=== PATIENT | male | born 1970 | race African-American/Black ===

== ENCOUNTER 2016-08-22 13:24 | Inpatient (IN) ==
[2016-08-22] MEDS ORDERED: ASPIRIN 325 MG TABLET PO STA (13:56)
[2016-08-22] MEDS ORDERED: ENOXAPARIN 100 MG/ML SYRINGE SUBCUT STA (13:56)
[2016-08-22] MEDS ORDERED: NITROGLYCERIN SL 0.4 MG TABLET SL PRN (13:56)
[2016-08-22] MEDS ORDERED: ASPIRIN 325 MG TABLET ONE (13:57)
[2016-08-22] MEDS ORDERED: ENOXAPARIN 80 MG/0.8 ML SYRINGE SUBCUT ONE (13:57)
--- NOTE | 2016-08-22 13:58 | EKG Report ---
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
[2016-08-22 14:06] LABS: Basophils % 0.6 % (0.0-0.8); Eosinophils # 0.2 10*3/uL (0.0-0.87); Eosinophils % 3.1 % (0.00-10.9); Hemoglobin 15.5 GM/DL (14.0-18.0); Immature Granulocytes % 0.2 %; Immature Granulocytes Absolute 0.01 #; Lymphocytes # 2.4 10*3/uL (1.4-4.0); Lymphocytes % 37.9 % (21.2-54.2); Mean Corpuscular HGB Conc 33.7 GM/DL (32-36); Mean Corpuscular Hemoglobin 29 PG (27-34); Mean Corpuscular Volume 86.3 FL (87-102); Monocytes # 0.4 10*3/uL (0.11-0.8); Monocytes % 6.4 % (1.7-12.7); Neutrophils # 3.2 10*3/uL (1.4-7.4); Neutrophils % 51.8 % (38.7-73.9); Platelet Count 243 T/CUMM (130-400); Red Blood Count 5.33 MC/CUMM (3.8-5.5); White Blood Count 6.2 T/CUMM (4-12)
[2016-08-22] MEDS ORDERED: HYDROmorphone 2 MG/1 ML VIAL ONE (14:06)
[2016-08-22] MEDS ORDERED: LIDOCAINE 1% 20 ML VIAL ONE (14:06)
[2016-08-22] MEDS ORDERED: MIDAZOLAM 2 MG/2 ML VIAL ONE (14:07)
--- NOTE | 2016-08-22 14:28 | XRay Report ---
Portable chest Date: 08/22/2016 Clinical history: Chest pain Comparison: 06/01/2009 Technique: Portable AP sitting chest Findings: The heart is normal in size. Calcified granulomata with chronic scarring. Minimal atelectasis at the lung bases. Unremarkable mediastinum and osseous structures. Impression: Scarring with minimal atelectasis at the lung bases. PROCEDURE INTERPRETED AT [facility] DEPARTMENT OF RADIOLOGY Final Report Signed by: Dr. Geetha Melton
[2016-08-22 14:34] LABS: Albumin 4.5 G/DL (3.4-5.0); Bilirubin,Total 0.4 MG/DL (0.2-1.0); Calcium 9.9 MG/DL (8.5-10.1); Magnesium 2.1 MG/DL (1.8-2.4); Osmolality,Calculated 284.1 MOS/KG (273-304); Potassium 3.9 MMOL/L (3.5-5.1); Total Protein 8.3 G/DL (6.4-8.3)
[2016-08-22] MEDS ORDERED: ONDANSETRON 4 MG/2 ML VIAL IV PRN (14:50)
[2016-08-22] MEDS ORDERED: ZALEPLON 5 MG CAPSULE PO PRN (14:50)
[2016-08-22] MEDS ORDERED: CLOPIDOGREL 300 MG TABLET PO ONE (14:50)
--- NOTE | 2016-08-22 15:00 | Cardiac Catheterization ---
Date of Procedure:: 08/22/16 Post-op diagnosis: same Procedure: Procedures performed: 1. Left heart catheterization 2. Coronary angiography 3. Left ventriculography Brief summary: Mr. Lewis 46-year-old with previous inferior AL in 2008 presented with one-week chest pain shortness of breath with EKG changes concerning for injury anteriorly. He reportedly had a troponin was positive outside facility. Description of procedure: After obtaining informed consent, the right groin was prepped and draped in the usual sterile fashion. Next a short 6 Palestinian sheath was placed in the right femoral artery using a modified Seldinger technique, after the patient received IV sedation and local anesthetic. Next a JL4 catheter was advanced over a guidewire under fluoroscopic guidance, and was engaged to the left coronary artery after which angiography was performed in multiple views. This was then removed over a wire, and a JR4 catheter was advanced in similar fashion was engaged the right coronary artery after which angiography was performed in multiple views. Next a bent pigtail catheter was advanced into the left ventricle, where hemodynamic measurements were obtained, left ventriculography was performed. I was able to visualize the sheath on a "lopez down" shot which showed the sheath was inserted in the right common femoral artery in a vessel suitable for closure. Hemostasis was obtained with Angio-Seal device with no residual bleeding. 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 Coronary angiography: Left main coronary artery is a bit larger than average caliber. Left anterior to see artery is larger than average caliber but is ectatic in the proximal and midportion. There is 30-40% mid LAD stenosis. The LAD wraps well around the apex and is occluded very distally at the apex with evidence of thrombus. The right coronary artery is occluded very proximally with a long stented segment which is occluded. The conus provides collaterals to a couple thin marginal branches. The right-sided PDA seen filling by left-to -right collaterals. Left ventriculography: The left ventricle appears normal in size with normal overall LV systolic function. The estimated ejection fraction 55% with small discrete area of severe apical hypokinesis. Impression: 1. Normal overall LV systolic function with ejection fraction estimated 55% with small apical area of severe hypokinesis 2. Right dominant system 3. Several small saccular aneurysms are noted including in the proximal diagonal, proximal OM1 with ectatic proximal and mid LAD 4. Two-vessel coronary artery disease as described above including but not limited to: A. Very distal LAD occlusion at the apex with evidence of thrombus B. Very proximal RCA occlusion with long stented segment and filling of PDA by [id number] collaterals. Recommendations and discussion: Given these findings it is clear Mr. Middleton be treated medically. His thrombus is much too distal for intervention. I will start him on aspirin and Plavix, we 'll give him low dose beta lion and continuous statin therapy. His normal LV function is encouraging scarred cardiovascular prognosis. We will need to make sure that he does not smoke and takes his medicine regularly. He'll need to avoid squatting straining or lifting for the next one week's time. We will plan to watch overnight. 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
--- NOTE | 2016-08-22 15:41 | EKG Report ---
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
[2016-08-22] MEDS: METOPROLOL TARTRATE 50 MG TABLET PO SCH ×2 (17:35→21:15)
--- NOTE | 2016-08-22 17:46 | Cardiology Progress Note ---
Assessment and Plan (1) NSTEMI (non-ST elevated myocardial infarction) Status: Acute Assessment and plan: 1. 46-year-old black male smoker with history of apparent inferior PA 2008 with AngioJet and multiple stents placed in his right coronary artery with suboptimal result (BETTY 1 flow), now with 5-7 days of chest pain and shortness of breath and EKG with early repolarization and some suggestion of anterior injury taken directly to the offset label rewinder for definition of his coronary anatomy 2. At catheterization he had occluded ostial right coronary artery which appears to be chronic since 2008 with filling of his PDA by [id number] collaterals, as well as very distal LAD thrombus at the apex not amenable to intervention; will give medical therapy with statin, baby aspirin, and Plavix, as well as low-dose beta lion. 3. Stopping smoking will be very important as he has had 2 myocardial infarctions in the last 8 years 4. Overall normal LV systolic function with ejection fraction estimated 55% with a discrete area of apical hypokinesis 5. We'll observe overnight; his chest pain resolved after the catheterization without intervention. Current Visit: Yes (2) HTN (hypertension) Status: Acute Current Visit: Yes (3) Dyslipidemia Status: Acute Current Visit: Yes (4) Smoking Status: Acute Current Visit: Yes Cardiology - PN: Subj Interval history: Mr. Nguyen reports having chest pain for the last week. He is not clear on how long it lasts at a time but says that is been constant today and radiates to his left arm. He also reports some shortness of breath. He denies any history of blood clots or bleeding problems. Denies any history of TIA or stroke. He reports that he smokes regularly. I met him on the offset label rewinder table, as he had a troponin measured outside it was positive, EKG changes suggestive though not diagnostic of anterior injury. Exam (Progress Note) - Constitutional Vitals: Period Temp Pulse Resp BP Sys/Meza Pulse Ox Last 24 Hr 97.3 F-97.8 F 65-76 16-24 102-129/67-88 99-100 Result/EKG - Labs CBC & BMP: 08/22/16 13:56 08/22/16 13:56 Labs: Laboratory Results - last 24 hr 08/22/16 08/22/16 08/22/16 13:56 13:56 13:56 WBC 6.2 RBC 5.33 Hgb 15.5 Hct 46.0 MCV 86.3 L MCH 29 MCHC 33.7 RDW 13.0 Plt Count 243 MPV 12.0 Neut % (Auto) 51.8 Lymph % (Auto) 37.9 [place] % (Auto) 6.4 Eos % (Auto) 3.1 Baso % (Auto) 0.6 Neut # (Auto) 3.2 Lymph # (Auto) 2.4 [place] # (Auto) 0.4 Eos # (Auto) 0.2 Baso # (Auto) 0.0 Immature Gran % 0.2 Nucleated RBC % 0.0 Immature Gran # 0.01 Nucleated RBCs # 0.00 Sodium 142 Potassium 3.9 Chloride 103 Carbon Dioxide 28 Anion Gap 14.9 BUN 22 H Creatinine 1.30 GFR Calculation 79 BUN/Creatinine Ratio 16.00 Glucose 80 Calculated Osmolality 284.1 Calcium 9.9 Magnesium 2.1 Total Bilirubin 0.40 AST 22 ALT 28 Alkaline Phosphatase 89 Troponin I B-Natriuretic Peptide 24 Total Protein 8.3 Albumin 4.5 Globulin 3.8 H Albumin/Globulin Ratio 1.1 08/22/16 13:56 WBC RBC Hgb Hct MCV MCH MCHC RDW Plt Count MPV Neut % (Auto) Lymph % (Auto) [place] % (Auto) Eos % (Auto) Baso % (Auto) Neut # (Auto) Lymph # (Auto) [place] # (Auto) Eos # (Auto) Baso # (Auto) Immature Gran % Nucleated RBC % Immature Gran # Nucleated RBCs # Sodium Potassium Chloride Carbon Dioxide Anion Gap BUN Creatinine GFR Calculation BUN/Creatinine Ratio Glucose Calculated Osmolality Calcium Magnesium Total Bilirubin AST ALT Alkaline Phosphatase Troponin I 3.820 H B-Natriuretic Peptide Total Protein Albumin Globulin Albumin/Globulin Ratio
[2016-08-22 19:10] LABS: Barbiturates Screen,Urine Negative (Negative); Benzodiazepines Screen,Urine Positive (Negative); Cannabinoid Screen,Urine Positive (Negative); Opiate Screen,Urine Positive (Negative); Phencyclidine Screen,Urine Negative (Negative)
[2016-08-23 05:42] LABS: Basophils % 0.2 % (0.0-0.8); Eosinophils # 0.5 10*3/uL (0.0-0.87); Eosinophils % 5.2 % (0.00-10.9); Hematocrit 42.9 VOL% (42.0-52.0); Hemoglobin 14.6 GM/DL (14.0-18.0); Immature Granulocytes % 0.3 %; Immature Granulocytes Absolute 0.03 #; Lymphocytes # 2.1 10*3/uL (1.4-4.0); Lymphocytes % 23.1 % (21.2-54.2); Mean Corpuscular Hemoglobin 29 PG (27-34); Mean Corpuscular Volume 84.4 FL (87-102); Mean Platelet Volume 12.2 FL (9.6-12.0); Monocytes # 0.7 10*3/uL (0.11-0.8); Monocytes % 7.6 % (1.7-12.7); Neutrophils # 5.9 10*3/uL (1.4-7.4); Neutrophils % 63.6 % (38.7-73.9); Platelet Count 228 T/CUMM (130-400); Red Blood Count 5.08 MC/CUMM (3.8-5.5); Red Cell Distribution Width 13.1 % (9.3-17.3); White Blood Count 9.2 T/CUMM (4-12)
[2016-08-23 06:19] LABS: Calcium 9.4 MG/DL (8.5-10.1); Osmolality,Calculated 286.1 MOS/KG (273-304); Potassium 4.3 MMOL/L (3.5-5.1)
--- NOTE | 2016-08-23 07:30 | EKG Report ---
Stationary ECG Study 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
[2016-08-23] MEDS ORDERED: CLOPIDOGREL 75 MG TABLET PO SCH (09:00)
[2016-08-23] MEDS ORDERED: ASPIRIN EC 81 MG TABLET PO SCH (09:00)
[2016-08-23] MEDS ORDERED: METOPROLOL SUCCINATE XL 50 MG TABLET PO SCH (09:00)
[2016-08-23] MEDS ORDERED: LISINOPRIL 10 MG TABLET PO SCH (09:00)
--- NOTE | 2016-08-23 09:15 | Discharge Summary ---
Hospital Course - Hospital Course Hospital Course: Mr. Lewis was admitted yesterday August 22 as an acute DE. His EKG really showed early repolarization but there was some suggestion of anterior injury and given his ongoing chest pain, and reported elevated troponin, I performed heart catheterization. His long stented right coronary was occluded home (from 2008 acute DE, likely long occluded) with very distal LAD thrombus at the apex. He reported this chest pain and shortness of breath was completely resolved at the end of the catheterization despite no intervention. His urine tox was positive for marijuana. He is positive for benzodiazepines and opiates, but he was given a lot of and Versed prior to catheterization. Today he is without symptoms and is anxious for discharge. His right groin site is without hematoma bleeding or bruit. He is on aspirin and Plavix and started low-dose beta lion and low-dose EDUARDO inhibitor. He is hemodynamically stable. At this time I believe he is received maximal hospital benefit [facility]. He will need to avoid squatting straining or lifting for the next 6 days. Diagnosis - Discharge Diagnosis (1) NSTEMI (non-ST elevated myocardial infarction) Status: Acute (2) HTN (hypertension) Status: Acute (3) Dyslipidemia Status: Acute (4) Smoking Status: Acute Specialty Discharge - Follow Up or Referrals Follow up with: Vladimir Bray MD [Physician] - 2 Weeks (with EKG CBC CMP FLP) Discharge Plan - Discharge Medications No Action Mag Hydrox/Al Hydrox/Simeth [Alum-Mag Hydroxide-Simeth Liq] 15 ml PO PCHS amLODIPine [Norvasc] 10 mg PO DAILY Simvastatin 10 mg PO BEDTIME hydroCHLOROthiazide [Hydrochlorothiazide] 25 mg PO QAM Mirtazapine 30 mg PO BEDTIME Naproxen [Naprosyn Tab] 500 mg PO BID Aspirin Chew Tab 81 mg PO DAILY - Follow Up or Referral - Forms/Instructions Exam - Constitutional Vitals: Period Temp Pulse Resp BP Sys/Meza Pulse Ox Last 24 Hr 96.4 F-97.8 F 61-76 16-24 102-168/61-93 96-100 General appearance: normal weight, no acute distress - Head Head exam: Present: normal inspection, normocephalic, atraumatic - Neck Neck exam: Present: normal inspection - Respiratory Respiratory exam: Present: clear to auscultation bilaterally - Cardiovascular Cardiovascular exam: Present: regular rate and rhythm. Absent: diastolic murmur , rubs, systolic murmur - GI/Abdominal GI/Abdominal exam: Present: soft. Absent: tenderness - Extremities Exam Extremities exam: Present: other (right groin is without bruit hematoma or bleeding at that). Absent: edema Discharge Results Labs on day of discharge: Labs from last 24 hours 08/23/16 08/23/16 08/22/16 04:19 04:19 19:34 WBC 9.2 D RBC 5.08 Hgb 14.6 Hct 42.9 MCV 84.4 L MCH 29 MCHC 34.0 RDW 13.1 Plt Count 228 MPV 12.2 H Neut % (Auto) 63.6 Lymph % (Auto) 23.1 [place] % (Auto) 7.6 Eos % (Auto) 5.2 Baso % (Auto) 0.2 Neut # (Auto) 5.9 Lymph # (Auto) 2.1 [place] # (Auto) 0.7 Eos # (Auto) 0.5 Baso # (Auto) 0.0 Immature Gran % 0.3 Nucleated RBC % 0.0 Immature Gran # 0.03 Nucleated RBCs # 0.00 Sodium 142 Potassium 4.3 Chloride 106 Carbon Dioxide 25 Anion Gap 15.3 H BUN 23 H Creatinine 1.20 GFR Calculation 87 BUN/Creatinine Ratio 19.00 Glucose 91 Calculated Osmolality 286.1 Calcium 9.4 Magnesium Total Bilirubin AST ALT Alkaline Phosphatase Troponin I 3.360 H B-Natriuretic Peptide Total Protein Albumin Globulin Albumin/Globulin Ratio Urine Opiates Screen Ur Barbiturates Screen Ur Phencyclidine Scrn U Amphetamine/Methamph U Benzodiazepines Scrn U Cocaine Metab Screen U Cannabinoids Screen 08/22/16 08/22/16 08/22/16 18:00 16:59 13:56 WBC RBC Hgb Hct MCV MCH MCHC RDW Plt Count MPV Neut % (Auto) Lymph % (Auto) [place] % (Auto) Eos % (Auto) Baso % (Auto) Neut # (Auto) Lymph # (Auto) [place] # (Auto) Eos # (Auto) Baso # (Auto) Immature Gran % Nucleated RBC % Immature Gran # Nucleated RBCs # Sodium Potassium Chloride Carbon Dioxide Anion Gap BUN Creatinine GFR Calculation BUN/Creatinine Ratio Glucose Calculated Osmolality Calcium Magnesium Total Bilirubin AST ALT Alkaline Phosphatase Troponin I 3.670 H 3.820 H B-Natriuretic Peptide Total Protein Albumin Globulin Albumin/Globulin Ratio Urine Opiates Screen Positive H Ur Barbiturates Screen Negative Ur Phencyclidine Scrn Negative U Amphetamine/Methamph Negative U Benzodiazepines Scrn Positive H U Cocaine Metab Screen Negative U Cannabinoids Screen Positive H 08/22/16 08/22/16 08/22/16 13:56 13:56 13:56 WBC 6.2 RBC 5.33 Hgb 15.5 Hct 46.0 MCV 86.3 L MCH 29 MCHC 33.7 RDW 13.0 Plt Count 243 MPV 12.0 Neut % (Auto) 51.8 Lymph % (Auto) 37.9 [place] % (Auto) 6.4 Eos % (Auto) 3.1 Baso % (Auto) 0.6 Neut # (Auto) 3.2 Lymph # (Auto) 2.4 [place] # (Auto) 0.4 Eos # (Auto) 0.2 Baso # (Auto) 0.0 Immature Gran % 0.2 Nucleated RBC % 0.0 Immature Gran # 0.01 Nucleated RBCs # 0.00 Sodium 142 Potassium 3.9 Chloride 103 Carbon Dioxide 28 Anion Gap 14.9 BUN 22 H Creatinine 1.30 GFR Calculation 79 BUN/Creatinine Ratio 16.00 Glucose 80 Calculated Osmolality 284.1 Calcium 9.9 Magnesium 2.1 Total Bilirubin 0.40 AST 22 ALT 28 Alkaline Phosphatase 89 Troponin I B-Natriuretic Peptide 24 Total Protein 8.3 Albumin 4.5 Globulin 3.8 H Albumin/Globulin Ratio 1.1 Urine Opiates Screen Ur Barbiturates Screen Ur Phencyclidine Scrn U Amphetamine/Methamph U Benzodiazepines Scrn U Cocaine Metab Screen U Cannabinoids Screen DS: Provider Consults: 08/22/16 16:14 Consult to Pastoral Services [CONS] Routine Comment: Pastoral Screen: Request 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
[2016-08-23 11:46] VITALS: BP 120/68
--- NOTE | 2016-08-30 15:25 | Emergency Department Note ---
Fortunato Carbajal Brooke, am scribing for, and in the presence of, Dannie Jerez MD 13:58. Solitario Carbajal Phillip K, MD, personally performed the services described in this documentation, ascribed by Pearl Bucio in my presence, and it is both accurate and complete . Arrival - Arrival Chief Complaint: Chest Pain Stated Complaint: chest pain; elevated troponin ED Nursing Triage Note: Patient arrived from [facility] with guards with complaint of chest pain x 5 days. Patient complains of mid-sternal chest pain with radiation to left arm. PMH: htn, mi 2009 Mode of Arrival: Ambulatory Limitations: No Limitations Source: Patient, RN Notes Reviewed Time Seen by Provider: 08/22/16 13:50 - History of Present Illness HPI Narrative: Patient is a 46 year old male brought into the ED from [facility] with c/o chest pain that started five days ago. Patient says the pain has been intermittent and is located on the left side of his chest. Patient describes the pain as sharp and says it is hurting "a little bit " now. He says the pain radiates down into his left arm. He also complains of SOB and diaphoresis that is associated with the chest pain. Patient denies any nausea, vomiting, or abdominal pain. [facility] omid blood on August 17, 2016 and Patient's Troponin was 49.4. This value was reported to the [place] [facility] personnel 3 days later. Patient had an WA in 2009 where he had stents placed. Patient also has PMHx of HTN and high cholesterol. Patient does not take ASA daily. He is a smoker. Onset (ago): day(s) (5) Allergies/Adverse Reactions: Allergies Allergy/AdvReac Type Severity Reaction Status Date / Time No Known Allergies Allergy Unverified 08/22/16 13:42 Home Medications: Home Medications Medication Instructions Recorded Confirmed Type Aspirin Chew Tab 81 mg PO DAILY 08/22/16 08/22/16 History Mag Hydrox/Al Hydrox/Simeth 15 ml PO PCHS 08/22/16 08/22/16 History [Alum-Mag Hydroxide-Simeth Liq] Mirtazapine 30 mg PO BEDTIME 08/22/16 08/22/16 History amLODIPine [Norvasc] 10 mg PO DAILY 08/22/16 08/22/16 History Aspirin EC Tab 81 mg PO DAILY #100 tablet 08/23/16 Rx Atorvastatin [Lipitor] 40 mg PO DAILY #30 tablet 08/23/16 Rx Clopidogrel [Plavix] 75 mg PO DAILY #30 tablet 08/23/16 Rx Lisinopril [Prinivil] 10 mg PO DAILY #30 tablet 08/23/16 Rx Metoprolol Succinate Xl [Toprol Xl] 50 mg PO DAILY #30 tablet 08/23/16 Rx Nitroglycerin Sl Tab [Nitrostat] 0.4 mg SL Q5M PRN #100 tablet 08/23/16 Rx Review of System - Review of System 12 point system: reviewed and no additional remarkable complaints except as stated - Review of System Constitutional: Present: diaphoresis. Absent: fever Respiratory: Present: other (SOB). Absent: respiratory distress Cardiovascular: Present: chest pain Gastrointestinal: Absent: abdominal pain, nausea, vomiting Musculoskeletal: Present: arm pain (chest pain radiating down left arm) Skin: Absent: rash Medical,Surgical,& Family Hx - Medical History Cardio: History of: Hypertension, [place] - Social History Smoking Status: Current every day smoker Frequency of Alcohol Use: None Type of Drug Use: None Exam Vital Signs: Vital Signs Temperature 97.2 F L 08/23/16 11:45 Pulse Rate 72 08/23/16 11:45 Respiratory Rate 20 08/23/16 11:45 Blood Pressure 120/68 08/23/16 11:45 O2 Sat by Pulse Oximetry 94 L 08/23/16 11:45 - General General appearance: alert, in no apparent distress - Head Head exam: Present: atraumatic - Eye Eye exam: Present: normal appearance, PERRL, EOMI - ENT ENT exam: Present: normal exam - Neck Neck exam: Present: normal inspection - Chest Chest inspection: Present: normal inspection - Respiratory Respiratory exam: Present: normal lung sounds bilaterally. Absent: respiratory distress - Cardiovascular Cardiovascular exam: Present: regular rate, normal rhythm, normal heart sounds. Absent: murmur, rubs - Abdominal Exam Abdominal exam: Present: soft, normal bowel sounds. Absent: distention, tenderness - Rectal Exam Rectal exam: Present: deferred - Extremities Exam Extremities exam: Present: normal inspection - Back Exam Back exam: Present: normal inspection - Neurological Exam Neurological exam: Present: alert, oriented X3. Absent: motor sensory deficit - Psychiatric Psychiatric exam: Present: normal affect, normal mood - Skin Skin exam: Present: warm, dry Course Course Narrative: EKG sent to Dr. Bray who is in the can labeler and we will prepare the Patient for the heart can labeler. All labs are pending. Results - Labs CBC & BMP: 08/23/16 04:19 08/23/16 04:19 Lab Results: I have reviewed the patients labs - EKG EKG results: interpreted by AMZIN, sinus rhythm (ST elevation in V3 and V4, acute anterior [place]) Disposition Clinical Impression: ST elevation myocardial infarction (STEMI), multiple drug abuse Case discussed with: patient Disposition: Still a Patient Condition: Stable New Prescriptions: Rx's Medication Instructions Recorded Aspirin EC Tab 81 mg PO DAILY #100 tablet 08/23/16 Atorvastatin [Lipitor] 40 mg PO DAILY #30 tablet 08/23/16 Clopidogrel [Plavix] 75 mg PO DAILY #30 tablet 08/23/16 Lisinopril [Prinivil] 10 mg PO DAILY #30 tablet 08/23/16 Metoprolol Succinate Xl [Toprol Xl] 50 mg PO DAILY #30 tablet 08/23/16 Nitroglycerin Sl Tab [Nitrostat] 0.4 mg SL Q5M PRN #100 tablet 08/23/16
== END 2016-08-23 14:47 | DRG 282 ==
LOC: EDBD → EDUNIT# → N.ED 13:24 → N.CL 14:03 → N.TELEN 16:08
PROVIDERS: ADMIT Internal Medicine Cardiovascular Disease; ATTEND Internal Medicine Cardiovascular Disease
PROC: CLCCHCL (ICD-10-PCS; 2016-08-22 15:15)